=== PATIENT | female | born 1985 | race African-American/Black ===

== ENCOUNTER → 2018-09-04 | Outpatient (CLI) | payer OTHER ==
--- NOTE | 2018-09-04 14:28 | CT ---
EXAMINATION TYPE: CT chest w con DATE OF EXAM: 09/04/2018 COMPARISON: NONE HISTORY: Shortness of breath, cough and hemoptysis. CT DLP: 914.2 mGycm. Automated Exposure Control for Dose Reduction was Utilized. TECHNIQUE: CT scan of the thorax is performed following with IV Contrast, patient injected with 100 mL of Isovue M300. FINDINGS: LUNGS: The lungs are grossly clear, there is no concerning parenchymal mass or nodule identified. T here is no pleural effusion or pneumothorax seen. The tracheobronchial tree is patent. MEDIASTINUM: There are no greater than 1 cm hilar or mediastinal lymph nodes. No cardiomegaly or pe ricardial effusion is seen. OTHER: Surgical changes from gastric bypass procedure epigastric region are seen. Cholecystectomy cli ps are noted. Spine is straightened on sagittal images. There is slight S-shaped scoliotic curvature on coronal images. IMPRESSION: No significant acute pulmonary process.
== END | disposition home or self-care (01) ==
LOC: RADCTMAIN 13:17
PROVIDERS: ATTEND Family Medicine
DX: R06.02 Shortness of breath (principal); R04.2 Hemoptysis; Z88.2 Allergy status to sulfonamides; Z88.6 Allergy status to analgesic agent; Z91.040 Latex allergy status
CPT/HCPCS: 71260; Q9967

== ENCOUNTER → 2019-01-02 | Outpatient (CLI) | payer OTHER ==
[2019-01-02 15:01] LABS: Potassium 4.4 mmol/L (3.5-5.1)
== END | disposition home or self-care (01) ==
LOC: LABPAT 12:51
PROVIDERS: ATTEND Anesthesiology
DX: Z01.818 Encounter for other preprocedural examination (principal); Z01.812 Encounter for preprocedural laboratory examination
CPT/HCPCS: 36415; 80051; 93005

== ENCOUNTER 2019-01-06 09:04 | Day surgery (SDC) | payer OTHER ==
[2018-12-31 15:34] VITALS: BMI 63.6
[~2019-01-06 09:04] MED LIST: DEXAMETHASONE SOD PHOSPHATE 10 MG/ML 1 ML VIAL IV ONE; HYDROmorphone 0.5 MG/0.5 ML SYRINGE IVP PRN; LACTATED RINGERS 1,000 ML IV SCH; MIDAZOLAM (PF) 2 MG/2 ML VIAL IV PRN; ONDANSETRON 4 MG/2 ML VIAL IVP ONE; Pre Op ABX Message 1 EACH MISC MISCELLANE ONE; SCOPOLAMINE 1.5MG/72HR PATCH TRANSDERM ONE
[2019-01-06 09:28] VITALS: RESP 16; TEMP 96.6
[2019-01-06] MEDS ORDERED: LIDOCAINE 1% 20 ML VIAL (10MG/ML) FOR IV START INTRADERMA ONE (09:34)
[2019-01-06] MEDS ORDERED: MIDAZOLAM 2 MG/2 ML VIAL ONE (10:06)
[2019-01-06] MEDS ORDERED: fentaNYL (PF) 50 MCG/ML 2 ML AMP ONE (10:06)
[2019-01-06] MEDS ORDERED: KETAMINE 10 MG/ML 20 ML VIAL ONE (10:06)
[2019-01-06] MEDS ORDERED: PROPOFOL 10 MG/ML 20 ML VIAL IV ONE (10:06)
[2019-01-06] MEDS ORDERED: LIDOCAINE 2% INJ 20 MG/ML SQ ONE (10:15)
[2019-01-06] MEDS ORDERED: BUPIVACAINE (PF) 0.5% 30 ML VIAL SQ ONE (10:15)
[2019-01-06 10:43] VITALS: BP 115/78
[2019-01-06 10:55] VITALS: PULSE 61
--- NOTE | 2019-01-06 12:49 | OP ---
OPERATIVE REPORT SURGERY DATE: 01/06/2019 SURGEON: Hugh Herndon DO. PREOPERATIVE DIAGNOSIS: Right carpal tunnel syndrome. POSTOPERATIVE DIAGNOSIS: Right carpal tunnel syndrome. PROCEDURE PERFORMED: Carpal tunnel release. DESCRIPTION OF PROCEDURE: The patient was taken to the operative suite where a sedation was administered by the Department of Anesthesia. I then performed a local injection along the line of the incision with a combination of Marcaine and Xylocaine both without epinephrine. The hand was then prepped and draped in the usual manner. The arm was elevated, exsanguinated and the cuff was inflated to 250 mm of mercury. A longitudinal incision was made along the ring finger ray distal to the wrist crease. Dissection was taken through the skin and subcutaneous tissue, initially sharp through the skin and then blunt through the subcutaneous tissue to ensure protection of any potential terminal transverse branches of the palmar cutaneous nerve. The palmar fascia was then incised under direct vision longitudinally exposing the transverse carpal ligament. The transverse carpal ligament also was incised under direct vision. The dissection was then continued proximally beneath the skin under direct vision to release the distal forearm fascia. The median nerve was then reflected free of tenosynovium to ensure no adhesions. The tourniquet was then released. The wound was then irrigated and the skin was closed with a running 5-0 nylon suture. A soft bulky dressing was applied including a volar plaster splint holding the wrist in a neutral slightly extended position. The patient was then taken to the recovery room in satisfactory condition. MMODL / IJN: [id number] /
== END 2019-01-06 11:29 ==
LOC: OR 09:04
PROVIDERS: ATTEND Orthopaedic Surgery Hand Surgery
DX: G56.01 Carpal tunnel syndrome, right upper limb (principal); I10 Essential (primary) hypertension; I49.9 Cardiac arrhythmia, unspecified; F39 Unspecified mood [affective] disorder; G47.33 Obstructive sleep apnea (adult) (pediatric); Z99.89 Dependence on other enabling machines and devices; Z86.79 Personal history of other diseases of the circulatory system; Z79.899 Other long term (current) drug therapy; Z88.2 Allergy status to sulfonamides; Z88.8 Allergy status to other drugs, medicaments and biological substances; Z91.040 Latex allergy status
CPT/HCPCS: 81025; 64721; J2001; J2250; J1100; J2405; J3010; J2704

== ENCOUNTER → 2022-06-01 | Outpatient (CLI) | payer OTHER ==
[2022-06-01 13:53] LABS: INR 0.9 (<1.2); Partial Thromboplastin Time 23.2 sec (22.0-30.0); Prothrombin Time 10.2 sec (9.0-12.0)
[2022-06-01 18:25] LABS: HCT 39.7 % (37.2-46.3); HGB 12.7 g/dL (12.0-15.0); MCV 90.6 fL (80.0-97.0); Mean Platelet Volume 9.9 fL (9.5-12.2); NRBC Per 100 WBC 0 /100 WBCS (0.0-0.0); Platelet Count 287 X 10*3/uL (140-440); RBC 4.38 X 10*6/uL (4.10-5.20); RDW 14.4 % (11.5-14.5); WBC 6.08 X 10*3/uL (4.50-10.00)
[2022-06-01 20:18] LABS: Chol/HDL Ratio 2.54 Ratio; LDL Cholesterol,Calculated 96.3 mg/dL (0.0-131.0); Prealbumin 14.7 mg/dL (18.0-42.0); VLDL Calculation 18.92 mg/dL (5.00-40.00)
[2022-06-01 20:43] LABS: Vitamin B12 <150.0 pg/mL (200.0-944.0)
[2022-06-01 22:40] LABS: ALT 10 U/L (8-44); AST 13 U/L (13-35); African American GFR (CKD) 109.1 (60.0-200.0); Albumin 3.6 g/dL (3.8-4.9); Albumin/Globulin Ratio 1.38 (1.60-3.17); Alkaline Phosphatase 116 U/L (41-126); BUN/Creat Ratio 16.33 Ratio (12.00-20.00); Calcium 8.8 mg/dL (8.7-10.3); Carbon Dioxide 21.8 mmol/L (20.0-27.5); Chloride 107 mmol/L (96-109); Ferritin 19.4 ng/mL (10.0-291.0); Globulin 2.6 g/dL (1.6-3.3); Glucose 85 mg/dL (70-110); Iron 49 ug/dL (50-170); Magnesium 2.1 mg/dL (1.5-2.4); Non-African American GFR(CKD) 94.1 (60.0-200.0); Phosphorus 3.4 mg/dL (2.4-5.1); Potassium 4.4 mmol/L (3.5-5.5); Sodium 142 mmol/L (135-145); Total Iron Binding Capacity 438 ug/dL (228-460); Total Protein 6.3 g/dL (6.2-8.2)
== END | disposition home or self-care (01) ==
LOC: LABPAT 12:48
PROVIDERS: ATTEND Surgery Plastic and Reconstructive Surgery
DX: E66.01 Morbid (severe) obesity due to excess calories (principal); D50.8 Other iron deficiency anemias; E44.0 Moderate protein-calorie malnutrition; E55.9 Vitamin D deficiency, unspecified; N19 Unspecified kidney failure
CPT/HCPCS: 80053; 80061; 82306; 82525; 82607; 82728; 82746; 83036; 83540; 83550; 83735; 83970; 84100; 84134; 84255; 84425; 84443; 84590; 84630; 85027; 85610; 85730

== ENCOUNTER 2022-06-04 08:14 | Day surgery (SDC) | payer OTHER ==
[2022-05-31 10:53] VITALS: BMI 64.5
[~2022-06-04 08:14] MED LIST changes: -DEXAMETHASONE SOD PHOSPHATE 10 MG/ML 1 ML VIAL IV ONE; -HYDROmorphone 0.5 MG/0.5 ML SYRINGE IVP PRN; +LIDOCAINE 1% (10MG/ML) FOR IV START INTRADERMA PRN; -MIDAZOLAM (PF) 2 MG/2 ML VIAL IV PRN; -ONDANSETRON 4 MG/2 ML VIAL IVP ONE; -Pre Op ABX Message 1 EACH MISC MISCELLANE ONE; -SCOPOLAMINE 1.5MG/72HR PATCH TRANSDERM ONE
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
[2022-06-04 08:54] VITALS: TEMP 97
[2022-06-04] MEDS ORDERED: LIDOCAINE 2% INJ 20 MG/ML (2 ML VIAL) ONE (09:10)
[2022-06-04] MEDS ORDERED: PROPOFOL 10 MG/ML 20 ML VIAL IV ONE (09:10)
[2022-06-04 09:34] VITALS: RESP 15
--- NOTE | 2022-06-04 09:46 | P.PCN ---
Date of Procedure: 06/04/22 Description of Procedure: PREOPERATIVE DIAGNOSIS: Dysphagia. s/p Mary-en-y gastric bypass. Nausea with vomiting. Morbid obesity. POSTOPERATIVE DIAGNOSIS: Dysphagia. s/p Mary-en-y gastric bypass. Nausea with vomiting. Morbid obesity. Gastrojejunal stricture without chronic ulcer without perforation OPERATION: Esophagogastrojejunoscopy with balloon dilatation from 10 to 20 mm. Esophagogastrojejunoscopy with cold forcep biopsies gastric pouch SURGEON: Conchis Jacobsen MD ANESTHESIA: MAC. INDICATIONS: The patient is a 36-year-old female who presents with a history of dysphagia, gastric bypass including new-onset nausea and vomiting. Benefits and risks of the procedure were described. Informed consent was obtained. DESCRIPTION: The patient was brought into the endoscopy suite and laid in the left lateral decubitus position. After a timeout was confirmed, the procedure was initiated. An Olympus gastroscope was passed along the posterior oropharynx down to the distal esophagus where the squamocolumnar junction was unremarkable. The gastric pouch was entered. A gastrojejunal stricture of 10 mm was found as the adult gastroscope was 9.5 mm in size. A Synthorx balloon dilator was placed through the scope. Final insufflation up to 20 mm was performed with a total of 2 minutes. The scope was advanced up to 60 cm from the incisors into the Mary limb. The mucosa of the gastrojejunal anastomosis was intact. No chronic gastrojejunal marginal ulcer was encountered. No full-thickness injury was encountered. Cold biopsies were obtained of the gastric pouch. The GI tract was desufflated. The patient tolerated the procedure well. FINDINGS: Squamocolumnar junction unremarkable at 37 cm. Stricture of approximately 10 mm encountered. No chronic gastrojejunal ulceration encountered. Micro-pouch, 2 cm gastric pouch Successful balloon dilatation to 20 mm. RECOMMENDATIONS: Start combined Protonix for 2 weeks Repeat upper endoscopy in 4-6 week Plan - Discharge Summary Discharge Rx Participant: No New Discharge Prescriptions: New Pantoprazole [Protonix] 40 mg PO DAILY #14 tab Continue Spironolactone-Hctz 25-25Mg [Aldactazide 25-25 MG] 1 each PO DAILY lamoTRIgine [LaMICtal] 25 mg PO BID ALPRAZolam [Xanax] 0.25 mg PO BID PRN PRN Reason: Anxiety Voltaren Gel (Unknown Dose) 1 applic TOPICAL DIRECTED PRN PRN Reason: Pain PARoxetine HCL [Paxil] 30 mg PO HS carvediloL [Coreg] 6.25 mg PO BID Vilazodone HCl [Viibryd] 20 mg PO QAM Lisdexamfetamine Dimesylate [Vyvanse] 70 mg PO DAILY Discharge Medication List Spironolactone-Hctz 25-25Mg [Aldactazide 25-25 MG] 1 each PO DAILY 12/31/18 [History] ALPRAZolam [Xanax] 0.25 mg PO BID PRN 05/31/22 [History] Lisdexamfetamine Dimesylate [Vyvanse] 70 mg PO DAILY 05/31/22 [History] PARoxetine HCL [Paxil] 30 mg PO HS 05/31/22 [History] Vilazodone HCl [Viibryd] 20 mg PO QAM 05/31/22 [History] Voltaren Gel (Unknown Dose) 1 applic TOPICAL DIRECTED PRN 05/31/22 [History] carvediloL [Coreg] 6.25 mg PO BID 05/31/22 [History] lamoTRIgine [LaMICtal] 25 mg PO BID 05/31/22 [History] Pantoprazole [Protonix] 40 mg PO DAILY #14 tab 06/04/22 [Rx] Follow up Appointment(s)/Referral(s): [facility] [place] [[facility] - 06/13/22 Patient Instructions/Handouts: Esophageal Dilation (DC) Discharge Disposition: HOME SELF-CARE
[2022-06-04 09:54] VITALS: BP 145/94; PULSE 65
== END 2022-06-04 10:28 | disposition home or self-care (01) ==
LOC: ORWHC2ENDO 08:14
PROVIDERS: ATTEND Surgery Plastic and Reconstructive Surgery
DX: K29.50 Unspecified chronic gastritis without bleeding (principal); K21.9 Gastro-esophageal reflux disease without esophagitis; E66.01 Morbid (severe) obesity due to excess calories; I48.91 Unspecified atrial fibrillation; I10 Essential (primary) hypertension; M19.90 Unspecified osteoarthritis, unspecified site; G47.33 Obstructive sleep apnea (adult) (pediatric); F41.9 Anxiety disorder, unspecified; F32.9 Major depressive disorder, single episode, unspecified; F10.99 Alcohol use, unspecified with unspecified alcohol-induced disorder; M54.9 Dorsalgia, unspecified; G89.29 Other chronic pain; M54.2 Cervicalgia; M25.569 Pain in unspecified knee; M25.579 Pain in unspecified ankle and joints of unspecified foot; G43.909 Migraine, unspecified, not intractable, without status migrainosus; Z98.891 History of uterine scar from previous surgery; Z90.89 Acquired absence of other organs; Z98.890 Other specified postprocedural states; Z80.0 Family history of malignant neoplasm of digestive organs; Z98.84 Bariatric surgery status; Z68.41 Body mass index [BMI] 40.0-44.9, adult; Z79.899 Other long term (current) drug therapy; Z91.040 Latex allergy status; Z88.8 Allergy status to other drugs, medicaments and biological substances; Z88.2 Allergy status to sulfonamides
CPT/HCPCS: 88305; 88342; 43239; 43249; J2704; J2001; C1726

== ENCOUNTER → 2022-07-03 | Outpatient (CLI) | payer OTHER ==
[2022-07-03 13:54] VITALS: BMI 65.2
== END ==
LOC: BARWHC3 11:39
PROVIDERS: ATTEND Surgery Plastic and Reconstructive Surgery
DX: Z71.3 Dietary counseling and surveillance (principal); E66.01 Morbid (severe) obesity due to excess calories; Z91.040 Latex allergy status; Z88.2 Allergy status to sulfonamides; Z88.6 Allergy status to analgesic agent; Z68.44 Body mass index [BMI] 60.0-69.9, adult
CPT/HCPCS: 97802

== ENCOUNTER 2022-07-23 07:08 | Day surgery (SDC) | payer OTHER ==
[2022-07-18 15:42] VITALS: BMI 64.5
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
[2022-07-23] MEDS ORDERED: LACTATED RINGERS 1,000 ML IV SCH (07:19)
[2022-07-23 07:58] VITALS: RESP 18; TEMP 97.2
[2022-07-23] MEDS ORDERED: PROPOFOL 10 MG/ML 20 ML VIAL IV ONE (07:58)
[2022-07-23] MEDS ORDERED: KETAMINE 10 MG/ML 20 ML VIAL ONE (07:58)
--- NOTE | 2022-07-23 08:22 | P.PCN ---
Date of Procedure: 07/23/22 Description of Procedure: PREOPERATIVE DIAGNOSIS: Dysphagia. Nausea with vomiting. POSTOPERATIVE DIAGNOSIS: Dysphagia. Morbid obesity. Gastrojejunal stricture without chronic ulcer without perforation OPERATION: Esophagogastrojejunoscopy with balloon dilatation from 10 to 20 mm. SURGEON: Conchis Jacobsen MD ANESTHESIA: MAC. INDICATIONS: The patient is a 37-year-old female who presents with a history of dysphagia, including new-onset nausea and vomiting. Benefits and risks of the procedure were described. Informed consent was obtained. DESCRIPTION: The patient was brought into the endoscopy suite and laid in the left lateral decubitus position. After a timeout was confirmed, the procedure was initiated. An Olympus gastroscope was passed along the posterior oropharynx down to the distal esophagus where the squamocolumnar junction was unremarkable. The gastric pouch was entered. A gastrojejunal stricture of 10 mm was found as the adult gastroscope was 9.5 mm in size. A Skin Scan balloon dilator was placed through the scope. Final insufflation up to 20 mm was performed with a total of 2 minutes. The scope was advanced up to 60 cm from the incisors into the Mary limb. The mucosa of the gastrojejunal anastomosis was intact. However chronic gastrojejunal marginal ulcer was encountered. No full-thickness injury was encountered. The GI tract was desufflated. The patient tolerated the procedure well. FINDINGS: Squamocolumnar junction unremarkable Stricture of approximately 9.5 mm encountered. No chronic gastrojejunal ulceration encountered. Successful balloon dilatation to 20 mm. Moderate retained food within micro-pouch, 2 cm Moderate retained food within the esophagus Moderate distortion of gastrojejunal anastomosis with multiple angulations creating functional intermittent obstruction RECOMMENDATIONS: Alternative diet to include liquids between bites of food Recommend esophagram Recommend revision of gastric bypass at index facility Upper endoscopy as needed. Plan - Discharge Summary Discharge Rx Participant: No New Discharge Prescriptions: Continue Spironolactone-Hctz 25-25Mg [Aldactazide 25-25 MG] 1 each PO DAILY PRN PRN Reason: edema lamoTRIgine [LaMICtal] 25 mg PO BID ALPRAZolam [Xanax] 0.25 mg PO BID PRN PRN Reason: Anxiety Voltaren Gel (Unknown Dose) 1 applic TOPICAL DIRECTED PRN PRN Reason: Pain PARoxetine HCL [Paxil] 30 mg PO HS Medroxyprogesterone Acetate [Depo-Provera] 150 mg IM ONCE Pantoprazole [Protonix] 40 mg PO DAILY #14 tab carvediloL [Coreg] 6.25 mg PO BID Vilazodone HCl [Viibryd] 20 mg PO QAM Lisdexamfetamine Dimesylate [Vyvanse] 70 mg PO DAILY Albuterol Nebulized [Ventolin Nebulized] 2.5 mg INHALATION Q4H PRN PRN Reason: Shortness Of Breath Albuterol Inhaler [Ventolin Hfa Inhaler] 1 - 2 puff INHALATION Q6H PRN PRN Reason: Shortness Of Breath Discharge Medication List Spironolactone-Hctz 25-25Mg [Aldactazide 25-25 MG] 1 each PO DAILY PRN 12/31/18 [History] ALPRAZolam [Xanax] 0.25 mg PO BID PRN 05/31/22 [History] Lisdexamfetamine Dimesylate [Vyvanse] 70 mg PO DAILY 05/31/22 [History] PARoxetine HCL [Paxil] 30 mg PO HS 05/31/22 [History] Vilazodone HCl [Viibryd] 20 mg PO QAM 05/31/22 [History] Voltaren Gel (Unknown Dose) 1 applic TOPICAL DIRECTED PRN 05/31/22 [History] carvediloL [Coreg] 6.25 mg PO BID 05/31/22 [History] lamoTRIgine [LaMICtal] 25 mg PO BID 05/31/22 [History] Albuterol Inhaler [Ventolin Hfa Inhaler] 1 - 2 puff INHALATION Q6H PRN 06/20/22 [History] Albuterol Nebulized [Ventolin Nebulized] 2.5 mg INHALATION Q4H PRN 06/20/22 [History] Medroxyprogesterone Acetate [Depo-Provera] 150 mg IM ONCE 06/20/22 [History] Pantoprazole [Protonix] 40 mg PO DAILY #14 tab 06/27/22 [Rx] Follow up Appointment(s)/Referral(s): [facility] [place] [facility] - 08/01/22 Patient Instructions/Handouts: Esophageal Dilation (DC) Activity/Diet/Wound Care/Special Instructions: Drink warm beverages during each meal Discharge Disposition: HOME SELF-CARE
[2022-07-23 08:30] VITALS: BP 123/83; PULSE 67
== END 2022-07-23 08:53 | disposition home or self-care (01) ==
LOC: ORWHC2ENDO 07:08
PROVIDERS: ATTEND Surgery Plastic and Reconstructive Surgery
DX: K91.89 Other postprocedural complications and disorders of digestive system (principal); K31.1 Adult hypertrophic pyloric stenosis; Z98.0 Intestinal bypass and anastomosis status; K21.9 Gastro-esophageal reflux disease without esophagitis; I10 Essential (primary) hypertension; I48.91 Unspecified atrial fibrillation; M19.90 Unspecified osteoarthritis, unspecified site; E66.01 Morbid (severe) obesity due to excess calories; G47.30 Sleep apnea, unspecified; Z99.89 Dependence on other enabling machines and devices; G43.909 Migraine, unspecified, not intractable, without status migrainosus; Z98.84 Bariatric surgery status; Z98.890 Other specified postprocedural states; Z80.0 Family history of malignant neoplasm of digestive organs; Z79.899 Other long term (current) drug therapy; Z91.040 Latex allergy status; Z88.2 Allergy status to sulfonamides; Z88.6 Allergy status to analgesic agent
CPT/HCPCS: 81025; 43245; J2704; C1726

== ENCOUNTER → 2022-08-17 | Outpatient (CLI) | payer OTHER ==
--- NOTE | 2022-08-17 13:19 | FL ---
EXAMINATION TYPE: FL barium swallow DATE OF EXAM: 08/17/2022 CLINICAL INDICATION: 37-year-old female R1 3.10. History of gastric bypass 20 years ago with worsenin g stomach pain, vomiting, and reflux. COMPARISON: None Total Flouroscopy Time: 2 minutes 43 seconds 47 images obtained. FINDINGS: Thin barium, single contrast technique was utilized due to patient's previous bariatric surgery. The swallowing mechanism is normal and hypopharyngeal anatomy is preserved. There is normal course of the thoracic esophagus. However, recurrent episodes of intraesophageal refl ux are encountered. There is suggestion of a small hiatal hernia. There appears to be some mottled fi lling defects at the GE junction and distending the gastric pouch and forcing a delay in passage of c ontrast into the stomach. This results in prolonged pooling of contrast in the esophagus. The gastrojejunostomy is not well delineated due to patient size and bowl overlap. However, once cont rast has entered the stomach, there is fairly prompt opacification of small bowel loops IMPRESSION: 1. There appear to be mottled filling defects at the GE junction and distending the gastric pouch and forcing a delay in passage of contrast into the stomach. This results in prolonged pooling of contra st in the esophagus and recurrent episodes of both gastroesophageal and intraesophageal reflux. Corre late for prominent retained ingested solid material. 2. The gastrojejunostomy is not well delineated due to patient size and bowel overlap. However, once contrast has entered the stomach, there is prompt opacification of small bowel.
== END | disposition home or self-care (01) ==
LOC: RADUSWWP 10:31
PROVIDERS: ATTEND Surgery Plastic and Reconstructive Surgery
DX: K21.9 Gastro-esophageal reflux disease without esophagitis (principal); R13.10 Dysphagia, unspecified; Z98.84 Bariatric surgery status
CPT/HCPCS: 74220